=== PATIENT | female | born 1960 | race Caucasian/White ===

== ENCOUNTER → 2016-12-25 | Outpatient (CLI) | payer OTHER ==
--- NOTE | 2016-12-26 20:36 | BD ---
EXAMINATION TYPE: MG DEXA axial skeleton. DATE OF EXAM: 12/25/2016 3:34 PM COMPARISON: NONE CLINICAL HISTORY: 56-year-old female postmenopausal screening Height: 67.2 IN Weight: 248 LBS FRAX RISK QUESTIONS: Alcohol (3 or more units per day): NO Family History (Parent hip fracture): YES FATHER Glucocorticoids (More than 3mos): NO (Ex: prednisone, prednisolone, methylprednisolone, dexamethasone, and hydrocortisone). History of Fracture in Adulthood: NO Secondary Osteoporosis: 1. Type 1 Diabetes: NO 2. Hyperthyroidism: NO 3. Menopause before 45: YES AGE 38 PARTIAL HYST. 4. Malnutrition: NO 5. Chronic liver disease: NO Rheumatoid Arthritis: NO Current Tobacco Use: NO RISK FACTORS HISTORY OF: History of Wrist Fracture: YES RT WRIST When: AGE 14 Active: YES Diet low in dairy products/other sources of calcium: YES Postmenopausal woman: AGE 38 Take estrogen and/or progesterone medications: NOT NOW How long: CONTROL AGE 22 - 23 MEDICATIONS: Additional Medications: NONE EXAM MEASUREMENTS: Bone mineral densitometry was performed using the [employer] System. Bone mineral density as measured about the Lumbar spine is: ----- L1-L4(G/cm2): 1.248 T Score Values are as follows: ----- L2: 0.6 ----- L3: 1.7 ----- L4: -0.2 ----- L1-L4: 0.6 Bone mineral density has: Decreased -7.4% since study of: 12/30/2012 Bone mineral density about the R hip (g/cm2): 1.005 Bone mineral density about the L hip (g/cm2): 0.957 T Score values are as follows: -----R Neck: -0.2 -----L Neck: -0.6 -----R Intertrochanter: 0.8 -----L Intertrochanter: 1.0 Bone mineral density has: Decreased -10.4% since study of: 12/30/2012 IMPRESSION: Normal (Values between +1 and -1 indicate normal bone mass). Rescreen in 5 years. NOTE: T-SCORE=SD OF THE YOUNG ADULT MEAN.
--- NOTE | 2016-12-27 12:12 | MM ---
Reason for exam: screening (asymptomatic). Last mammogram was performed 1 year and 1 month ago. History: Patient is postmenopausal. Family history of breast cancer in sister at age 54. Excisional biopsy of the left breast, August 14, 2004. Ultrasound-guided core biopsy of the left breast, July 18, 2004. Benign excisional biopsy of the right breast, July 28, 2001. Physical Findings: A clinical breast exam by your physician is recommended on an annual basis and results should be correlated with mammographic findings. MG Screening Mammo w CAD Bilateral CC and MLO view(s) were taken. Prior study comparison: December 06, 2015, bilateral MG screening mammo w CAD. January 21, 2014, bilateral MG screening mammo w CAD. December 30, 2012, bilateral digital screening mammo w/CAD. The breast tissue is heterogeneously dense. This may lower the sensitivity of mammography. There is chronic nodularity bilaterally. No significant changes when compared with prior studies. ASSESSMENT: Negative, BI-RAD 1 RECOMMENDATION: Routine screening mammogram of both breasts in 1 year.
== END | disposition home or self-care (01) ==
LOC: RADMAMWWP 15:31
PROVIDERS: ATTEND Obstetrics & Gynecology
DX: Z12.31 Encounter for screening mammogram for malignant neoplasm of breast (principal); N95.1 Menopausal and female climacteric states
CPT/HCPCS: 77080; G0202

== ENCOUNTER → 2018-08-06 | Outpatient (CLI) | payer OTHER ==
--- NOTE | 2018-08-07 14:31 | MM ---
Reason for exam: screening (asymptomatic). Last mammogram was performed 1 year and 7 months ago. History: Patient is postmenopausal. Family history of breast cancer in sister at age 54. Excisional biopsy of the left breast, August 14, 2004. Ultrasound-guided core biopsy of the left breast, July 18, 2004. Benign excisional biopsy of the right breast, July 28, 2001. Physical Findings: A clinical breast exam by your physician is recommended on an annual basis and results should be correlated with mammographic findings. MG Screening Mammo w CAD Bilateral CC and MLO view(s) were taken. Prior study comparison: December 25, 2016, bilateral MG screening mammo w CAD. December 06, 2015, bilateral MG screening mammo w CAD. The breast tissue is heterogeneously dense. This may lower the sensitivity of mammography. There is chronic nodularity bilaterally. Focal asymmetry increased distortion left MLO view. ASSESSMENT: Incomplete: need additional imaging evaluation, BI-RAD 0 RECOMMENDATION: Special view mammogram of the left breast. If lesion persists on supplemental views, image directed ultrasound is recommended. [facility] will attempt to contact patient to return for supplemental views and ultrasound if indicated.
== END | disposition home or self-care (01) ==
LOC: RADMAMWWP 09:46
PROVIDERS: ATTEND Family Medicine
DX: Z12.31 Encounter for screening mammogram for malignant neoplasm of breast (principal)
CPT/HCPCS: 77067

== ENCOUNTER → 2018-08-12 | Outpatient (CLI) | payer OTHER ==
--- NOTE | 2018-08-13 08:30 | MM ---
Reason for exam: additional evaluation requested from abnormal screening. Last mammogram was performed less than 1 month ago. History: Patient is postmenopausal. Family history of breast cancer in sister at age 54. Excisional biopsy of the left breast, August 14, 2004. Ultrasound-guided core biopsy of the left breast, July 18, 2004. Benign excisional biopsy of the right breast, July 28, 2001. Physical Findings: Nurse did not find any significant physical abnormalities on exam. MG Work Up Mamm w CAD LT Spot compression CC, spot compression MLO, and ML view(s) were taken of the left breast. Prior study comparison: August 06, 2018, bilateral MG screening mammo w CAD. December 25, 2016, bilateral MG screening mammo w CAD. The breast tissue is heterogeneously dense. This may lower the sensitivity of mammography. There is an upper outer quadrant focal asymmetry on spot compression views at anterior depth. These results were verbally communicated with the patient and result sheet given to the patient on 08/12/18. ASSESSMENT: Incomplete: need additional imaging evaluation, BI-RAD 0 RECOMMENDATION: Ultrasound of the left breast. upper outer quadrant
--- NOTE | 2018-08-13 08:32 | USB ---
Reason for exam: additional evaluation requested from abnormal screening. History: Patient is postmenopausal. Family history of breast cancer in sister at age 54. Excisional biopsy of the left breast, August 14, 2004. Ultrasound-guided core biopsy of the left breast, July 18, 2004. Benign excisional biopsy of the right breast, July 28, 2001. US Breast Workup Limited LT Left limited breast ultrasound including focal area of concern, retroareolar and axilla demonstrates a 0.3 x 0.2 x 0.3cm cystic lesion at the posterior nipple and a 0.8 x 0.3 x 0.6cm node at 3 o'clock. These results were verbally communicated with the patient and result sheet given to the patient on 08/12/18. ASSESSMENT: Probably benign, BI-RAD 3 RECOMMENDATION: Follow-up diagnostic mammogram of the left breast in 6 months.
== END ==
LOC: RADMAMWWP 13:45
PROVIDERS: ATTEND Family Medicine
DX: R92.8 Other abnormal and inconclusive findings on diagnostic imaging of breast (principal)
CPT/HCPCS: 77065

== ENCOUNTER → 2019-08-13 | Outpatient (CLI) | payer OTHER ==
--- NOTE | 2019-08-16 09:52 | MM ---
Reason for exam: screening (asymptomatic). Last mammogram was performed 6 months ago. History: Patient is postmenopausal. Family history of breast cancer in sister at age 54. Excisional biopsy of the left breast, August 14, 2004. Ultrasound-guided core biopsy of the left breast, July 18, 2004. Benign excisional biopsy of the right breast, July 28, 2001. Physical Findings: A clinical breast exam by your physician is recommended on an annual basis and results should be correlated with mammographic findings. MG Screening Mammo w CAD Bilateral CC and MLO view(s) were taken. Prior study comparison: February 24, 2019, left breast MG diagnostic mammo LT w CAD. August 12, 2018, left breast MG work up mamm w CAD LT. The breast tissue is heterogeneously dense. This may lower the sensitivity of mammography. There is no discrete abnormality. No significant changes when compared with prior studies. ASSESSMENT: Negative, BI-RAD 1 RECOMMENDATION: Routine screening mammogram of both breasts in 1 year.
== END | disposition home or self-care (01) ==
LOC: RADMAMWWP 14:58
PROVIDERS: ATTEND Family Medicine
DX: Z12.39 Encounter for other screening for malignant neoplasm of breast (principal)
CPT/HCPCS: 77067

== ENCOUNTER → 2020-07-19 | Outpatient (CLI) | payer OTHER ==
--- NOTE | 2020-07-19 13:55 | US ---
EXAMINATION TYPE: US abdomen complete DATE OF EXAM: 07/19/2020 COMPARISON: NONE CLINICAL HISTORY: R10.11 Right upper quadrant pain. Patient stated has deep RUQ pain with repetitive activity such as rapid bicycling with torso hunched over bike, or exercises in bent over position. Frank nassar has lost 70 lbs with diet and exercise program; change in bowel habits. EXAM MEASUREMENTS: Liver Length: 15.7 cm Gallbladder Wall: 0.2 cm CBD: 0.4 cm Spleen: 11.6 cm Right Kidney: 12.5 x 5.5 x 4.0 cm Left Kidney: 11.1 x 6.0 x 5.9 cm Pancreas: Tail obscured by overlying bowel gas Liver: mildly heterogeneous appearance to liver Gallbladder: small echogenic oval mass noted mid lumen in supine position may be small sludge ball = 0.3 x 0.5 x 0.2cm. Evidence for sonographic Parmar's sign: no CBD: wnl Spleen: wnl Right Kidney: inferior pole simple cyst is seen = 5.3x 4.1 x 3.6cm; hyperechoic parallel lines noted mid pole suggests vascular wall calcifications. Left Kidney: No hydronephrosis or masses seen Upper IVC: wnl Abd Aorta: mild intimal wall thickening noted throughout aorta; upper aorta size mildly widened at 2 .6cm Transverse View. IMPRESSION: 1. Fatty liver. 2. Suspect gallbladder sludge ball. 3. Simple cyst lower pole right kidney.
== END | disposition home or self-care (01) ==
LOC: RADUSWWP 12:47
PROVIDERS: ATTEND Family Medicine
DX: K76.0 Fatty (change of) liver, not elsewhere classified (principal); N28.1 Cyst of kidney, acquired
CPT/HCPCS: 76700

== ENCOUNTER → 2020-08-10 | Outpatient (CLI) | payer OTHER ==
--- NOTE | 2020-08-10 15:39 | NM ---
EXAMINATION TYPE: NM hepatobiliary w EF DATE OF EXAM: 08/10/2020 COMPARISON: Ultrasound abdomen complete July 19, 2020 HISTORY: Right upper quadrant pain per order. Abdominal pain with nausea per patient. TECHNIQUE: After the intravenous administration of 4.13 mCi Tc 99m Mebrofenin hepatobiliary scintigra phy is performed. Immediate images post injection. FINDINGS: There is satisfactory initial accumulation of tracer by the liver. The gallbladder is visualized wit hin 15 minutes. The small bowel activity is not well identified even after 60 minutes. At one hour 8 ounces of oral ensure plus is given to mimic CCK and gallbladder ejection fraction is calculated at 74 %, in the normal range. Therefore there is no scintigraphic evidence of cystic or common bile du ct obstruction to suggest acute cholecystitis or gallbladder dyskinesia. IMPRESSION: Exam is within normal limits.
== END | disposition home or self-care (01) ==
LOC: RADNMMAIN 12:55
PROVIDERS: ATTEND Family Medicine
DX: R10.11 Right upper quadrant pain (principal)
CPT/HCPCS: 78226; A9537

== ENCOUNTER → 2020-11-01 | Outpatient (CLI) | payer OTHER ==
--- NOTE | 2020-11-02 13:31 | MM ---
Reason for exam: screening (asymptomatic). Last mammogram was performed 1 year and 3 months ago. History: Patient is postmenopausal. Family history of breast cancer in sister at age 54. Excisional biopsy of the left breast, August 14, 2004. Ultrasound-guided core biopsy of the left breast, July 18, 2004. Benign excisional biopsy of the right breast, July 28, 2001. Physical Findings: A clinical breast exam by your physician is recommended on an annual basis and results should be correlated with mammographic findings. MG Screening Mammo w CAD Bilateral CC and MLO view(s) were taken. Prior study comparison: August 13, 2019, bilateral MG screening mammo w CAD. February 24, 2019, left breast MG diagnostic mammo LT w CAD. The breast tissue is heterogeneously dense. This may lower the sensitivity of mammography. There are benign appearing round calcifications bilaterally. There is chronic nodularity bilaterally. There is no discrete abnormality. ASSESSMENT: Benign, BI-RAD 2 RECOMMENDATION: Routine screening mammogram of both breasts in 1 year.
== END ==
LOC: RADMAMWWP 15:06
PROVIDERS: ATTEND Family Medicine
DX: Z12.31 Encounter for screening mammogram for malignant neoplasm of breast (principal); Z78.0 Asymptomatic menopausal state; Z80.3 Family history of malignant neoplasm of breast
CPT/HCPCS: 77067

== ENCOUNTER → 2020-12-26 | Outpatient (CLI) | payer OTHER ==
--- NOTE | 2020-12-26 10:32 | US ---
EXAMINATION TYPE: US kidneys/renal and bladder DATE OF EXAM: 12/26/2020 COMPARISON: Ultrasound abdomen July 19, 2020 CLINICAL HISTORY: N28.1 cyst of kidney. follow up right renal cyst EXAM MEASUREMENTS: Right Kidney: 11.9 x 4.4 x 3.9 cm Left Kidney: 10.7 x 5.2 x 6.7 cm Right Kidney: lower pole cystic lesion = 5.0 x 4.3 x 3.6 cm Left Kidney: No hydronephrosis or masses seen Bladder: distended, anechoic Bilateral Jets seen There is no evidence for hydronephrosis at this point in time. No nephrolithiasis is seen. Stable pa rtially exophytic 5.0 cm thin-walled cyst lower pole of the right kidney. The urinary bladder is sat isfactorily distended. Bilateral ureteral jets are seen. IMPRESSION: Stable benign partially exophytic thin-walled 5.0 cm cyst lower pole right kidney.
== END | disposition home or self-care (01) ==
LOC: RADUSWWP 08:55
PROVIDERS: ATTEND Family Medicine
DX: N28.1 Cyst of kidney, acquired (principal)
CPT/HCPCS: 76770

== ENCOUNTER → 2022-02-20 | Outpatient (CLI) | payer OTHER ==
--- NOTE | 2022-02-20 08:01 | US ---
EXAMINATION TYPE: US kidneys/renal and bladder DATE OF EXAM: 02/20/2022 COMPARISON: 12/26/2020 CLINICAL HISTORY: N281 CYST ON KIDNEY. CYST ON RT KIDNEY LOWER POLE EXAM MEASUREMENTS: Right Kidney: 13.5 x4.1 x 5.2 cm Left Kidney: 11.7 x 7.0 x 6.7 cm Right Kidney: No hydronephrosis or stones seen , Cystic area noted in lower pole ade. 5.8 x 5.0 x 5. 2cm Left Kidney: No hydronephrosis or masses seen Bladder: wnl Bilateral Jets seen: Yes There is no evidence for hydronephrosis at this point in time. No nephrolithiasis is seen. No Solid masses are identified. The urinary bladder is anechoic. Bilateral ureteral jets are seen. IMPRESSION: simple cyst lower pole right kidney.
--- NOTE | 2022-02-21 10:58 | MM ---
Reason for Exam: Screening (asymptomatic). Last mammogram was performed 1 year(s) and 3 month(s) ago. Patient History: Menarche at age 14. First Full-Term at age 26. Hysterectomy at age 38. Postmenopausal. 08/14/2004, Excisional Biopsy on the Left side. 07/18/2004, Ultrasound-Guided Core Biopsy on the Left side. 07/28/2001, Benign Excisional Biopsy on the right side. Sister had breast cancer, age 54. Risk Values: Brigid 5 year model risk: 4.2%. NCI Lifetime model risk: 20.1%. Prior Study Comparison: 02/24/2019 Left Diagnostic Mammogram, [facility]. 08/13/2019 Bilateral Screening Mammogram, [facility]. 11/01/2020 Bilateral Screening Mammogram, [facility]. Tissue Density: The breast tissue is heterogeneously dense. This may lower the sensitivity of mammography. Findings: Analyzed By CAD. There is no suspicious group of microcalcifications or new suspicious mass in either breast. Stable chronic nodularity seen bilaterally. Overall Assessment: Benign, BI-RAD 2 Management: Screening Mammogram of both breasts in 1 year. A clinical breast exam by your physician is recommended on an annual basis and results should be correlated with mammographic findings. Electronically signed and approved by: Deep Farrar M.D. Radiologis
--- NOTE | 2022-02-21 11:12 | BD ---
EXAMINATION TYPE: Axial Bone Density DATE OF EXAM: 02/20/2022 COMPARISON: NONE CLINICAL HISTORY: 61 years year old Female. ICD-10 CODE: [id number] POST MENOPAUSAL STATE Height: 5 FT 7 IN Weight: 180 FRAX RISK QUESTIONS: Alcohol (3 or more units per day): NO Family History (Parent hip fracture): YES Glucocorticoids (More than 3mos): NO (Ex: prednisone, prednisolone, methylprednisolone, dexamethasone, and hydrocortisone). History of Fracture in Adulthood: NO Secondary Osteoporosis: 1. Type 1 Diabetes: NO 2. Hyperthyroidism: NO 3. Menopause before 45: NO 4. Malnutrition: NO 5. Chronic liver disease: NO Rheumatoid Arthritis: NO Current Tobacco Use: NO RISK FACTORS HISTORY OF: Surgery to Spine/Hip(right/left)/Wrist (right/left): NO Family History of Osteoporosis: NO Active: YES Diet low in dairy products/other sources of calcium: NO Postmenopausal woman: YES Take estrogen and/or progesterone medications: NO Lost more than 2 inches in height since high school: YES Frequent falls: NO Poor Health: GOOD Hyperparathyroidism: NO Adrenal Insufficiency: NO MEDICATIONS: Additional Medications: NONE Additional History: EXAM MEASUREMENTS: Bone mineral densitometry was performed using the [employer] System. Bone mineral density as measured about the Lumbar spine is: ----- L1-L4(G/cm2): 1.042 T Score Values are as follows: ----- L1: -0.6 ----- L2: -1.2 ----- L3: -0.8 ----- L4: -2.0 ----- L1-L4: -1.1 Bone mineral density has: DECREASED -18.7 % since study of: 2017 Bone mineral density about the R hip (g/cm2): 0.870 Bone mineral density about the L hip (g/cm2): 0.890 T Score values are as follows: -----R Neck: -1.2 -----L Neck: -1.1 -----R Total: -0.9 -----L Total: -0.6 Bone mineral density has: DECREASED -16.1 % since study of: 2017 FRAX%s: The graph provided illustrates a 14.7 % chance for a major osteoporotic fx and a 0.5 % chance for the hips probability for fx in 10 years time. IMPRESSION: Osteopenia lumbar spine NOTE: T-SCORE=SD OF THE YOUNG ADULT MEAN.
== END | disposition home or self-care (01) ==
LOC: RADUSWWP 07:00
PROVIDERS: ATTEND Family Medicine
DX: Z12.31 Encounter for screening mammogram for malignant neoplasm of breast (principal); N28.1 Cyst of kidney, acquired; M85.89 Other specified disorders of bone density and structure, multiple sites; Z78.0 Asymptomatic menopausal state
CPT/HCPCS: 76770; 77067; 77080

== ENCOUNTER → 2023-05-22 | Outpatient (CLI) | payer OTHER ==
--- NOTE | 2023-05-22 16:07 | USB ---
Patient History: Menarche at age 14. First Full-Term at age 26. Hysterectomy at age 38. Postmenopausal. 08/14/2004, Excisional Biopsy on the Left side. 07/18/2004, Ultrasound-Guided Core Biopsy on the Left side. 07/28/2001, Benign Excisional Biopsy on the right side. Sister had breast cancer, age 54. Risk Values: Brigid 5 year model risk: 4.4%. NCI Lifetime model risk: 19.6%. Prior Study Comparison: 07/10/2001 Right Diagnostic Ultrasound, [facility]. 11/01/2020 Bilateral Screening Mammogram, [facility]. 02/20/2022 Bilateral MG screening mammo w CAD, [facility]. 05/09/2023 Bilateral MG screening mammo w CAD, [facility]. Findings: The lateral section of the breast of the right breast, the axilla of the right breast and the retroareolar of the right breast were scanned. There is slight enlargement of the solid appearing nodule right breast 7:00 position 7 cm from the nipple measuring 6 x 4 mm which is seen on mammograms dating back to 2016. The second area of concern upper outer right breast demonstrates a lymph node which is also present dating back to 2016 but has slightly enlarged in the interval and currently measures 1.0 x .5 cm. This may be reactive in nature. Additional right axillary tail lymph nodes are seen. Six-month follow-up ultrasound and mammography advised. Overall Assessment: Probably benign, BI-RAD 3 Management: Diagnostic Breast Ultrasound of the right breast in 6 months. A clinical breast exam by your physician is recommended on an annual basis and results should be correlated with mammographic findings. This exam should not preclude additional follow-up of suspicious palpable abnormalities. Results were given to the patient verbally at the time of exam. Electronically signed and approved by: David Suazo M.D. Radiologis
== END | disposition home or self-care (01) ==
LOC: RADUSWWP 14:17
PROVIDERS: ATTEND Family Medicine
DX: R92.8 Other abnormal and inconclusive findings on diagnostic imaging of breast (principal); Z78.0 Asymptomatic menopausal state; Z80.3 Family history of malignant neoplasm of breast

== ENCOUNTER → 2023-06-06 | Outpatient (CLI) | payer OTHER ==
--- NOTE | 2023-06-06 07:50 | US ---
EXAMINATION TYPE: US kidneys/renal and bladder DATE OF EXAM: 06/06/2023 COMPARISON: US 2021 CLINICAL INDICATION: Female, 62 years old with history of R10.11 RIGHT UPPER QUADRANT PAIN; EXAM MEASUREMENTS: Right Kidney: 10.6 x 4.3 x 4.9 cm Left Kidney: 11.3 x 6.2 x 4.4 cm Right Kidney: 5.2 x 4.7 x 4.3cm cyst inferior pole Left Kidney: wnl Bladder: wnl Bilateral Jets seen: yes There is no evidence for hydronephrosis at this point in time. No nephrolithiasis is seen. No solid masses are identified. The urinary bladder is anechoic. Bilateral ureteral jets are seen. IMPRESSION: Simple cyst lower pole right kidney.
== END | disposition home or self-care (01) ==
LOC: RADUSWWP 07:02
PROVIDERS: ATTEND Urology
DX: N28.1 Cyst of kidney, acquired (principal); R10.11 Right upper quadrant pain
CPT/HCPCS: 76770

== ENCOUNTER → 2023-11-14 | Outpatient (CLI) | payer MEDICARE, OTHER ==
--- NOTE | 2023-11-14 07:55 | MM ---
Reason for Exam: Follow-up at short interval from prior study. Last screening mammogram was performed 6 month(s) ago. Patient History: Menarche at age 14. First Full-Term at age 26. Hysterectomy at age 38. Postmenopausal. 08/14/2004, Excisional Biopsy on the Left side. 07/18/2004, Ultrasound-Guided Core Biopsy on the Left side. 07/28/2001, Benign Excisional Biopsy on the right side. Sister had breast cancer, age 54. Risk Values: Cindy 5 year model risk: 4.5%. NCI Lifetime model risk: 19.0%. Prior Study Comparison: 11/01/2020 Bilateral Screening Mammogram, [facility]. 02/20/2022 Bilateral MG screening mammo w CAD, [facility]. 05/09/2023 Bilateral MG screening mammo w CAD, [facility]. Tissue Density: Right: The breasts are heterogeneously dense, which may obscure small masses. Findings: Analyzed By CAD. The inferior nodularity at a middle depth and secondary of nodularity posterior upper-outer quadrant have both decreased in size from 6 months ago. Findings are compatible with improving reactive lymph nodes. Areas of asymmetric density also remain unchanged. No significant change from prior exams. Overall Assessment: Benign, BI-RAD 2 Management: Screening Mammogram of both breasts in 6 months. Back on schedule. SEE NOTE BELOW IN REGARDS TO PATIENT'S INCREASED 5 YEAR CINDY SCORE. WE ALSO NOTE LIFETIME RISK SCORE APPROACHING 20 %. Results were given to the patient verbally at the time of exam. Patient should continue monthly self-breast exams. A clinical breast exam by your physician is recommended on an annual basis. This exam should not preclude additional follow-up of suspicious palpable abnormalities. Note on Cindy scores and lifetime risk: 1. A Cindy score greater than 3% is considered moderate risk. If this is the case, consider specialist referral to assess eligibility for a risk reducing agent. 2. If overall lifetime risk for the development of breast cancer is 20% or higher, the patient may qualify for future screening with alternating mammogram and breast MRI. Electronically signed and approved by: Vanesa Tracy M.D. Radiologist
== END | disposition home or self-care (01) ==
LOC: RADMAMWWP 07:23
PROVIDERS: ATTEND Family Medicine
DX: R92.331 Mammographic heterogeneous density, right breast (principal); Z78.0 Asymptomatic menopausal state; Z80.3 Family history of malignant neoplasm of breast
CPT/HCPCS: 77065; G0279; 77061